=== PATIENT | male | born 1995 | race Caucasian/White ===

== ENCOUNTER 2019-11-10 12:46 | Emergency (ER) | payer MEDICAID ==
[~2019-11-10] VITALS: Ht 170.2 cm; Wt 71.2 kg
[2019-11-10 12:49] VITALS: Ht 170.2 cm; Wt 71.2 kg
[2019-11-10 14:52] VITALS: BP 123/59
== END 2019-11-10 14:52 | disposition home or self-care (01) ==
LOC: ED 12:46
DX: S61.211A Laceration without foreign body of left index finger without damage to nail, initial encounter (principal); W45.8XXA Other foreign body or object entering through skin, initial encounter; Y93.89 Activity, other specified; Y92.89 Other specified places as the place of occurrence of the external cause; Y99.8 Other external cause status
CPT/HCPCS: J2001